=== PATIENT | male | born 1995 | race Caucasian/White ===

== ENCOUNTER 2017-03-14 16:00 | Emergency (ER) | payer MEDICAID ==
[~2017-03-14] VITALS: Ht 185.4 cm; Wt 131.5 kg
[2017-03-14 20:37] VITALS: BP 134/77
== END 2017-03-14 20:37 | disposition home or self-care (01) ==
LOC: ED 16:00
DX: R07.89 Other chest pain (principal)
CPT/HCPCS: J1885; Q0092